=== PATIENT | male | born 1985 | race Two or more races ===

== ENCOUNTER 2020-05-09 12:32 | Emergency (ER) | payer OTHER ==
[~2020-05-09] VITALS: Ht 170.2 cm; Wt 86.0 kg
--- NOTE | 2020-05-09 12:55 | NUR ---
CHEST PRESSURE ON THE LEFT SIDE OF HIS CHEST FOR THE PAST 2 DAYS. PT WORKS CONSTRUCTION. NO HX, DENIES SOB VSS ON SENIOR UI UX DEVELOPER Ecg in triage DENIES ILLICITS
--- NOTE | 2020-05-09 12:56 | NUR ---
medical unit secretary used for assessment (argentine speaker)
[2020-05-09] MEDS ORDERED: ASPIRIN 81 MG TABLET CHEW ONE ×2 (13:21→13:23)
--- NOTE | 2020-05-09 13:24 | NUR ---
MEDICATED PER [facility] AT BEDSIDE
[2020-05-09] MEDS ORDERED: ASPIRIN 81 MG TABLET CHEW PO ONE (13:30)
[2020-05-09 13:41] LABS: BASOPHILS % (AUTO) 0 % (0-1); EOSINOPHILS % (AUTO) 1 % (1-7); LYMPHOCYTES % (AUTO) 31 % (22-44); MEAN CORPUSCULAR HEMOGLOBIN 30.3 pg (27.5-34.5); MEAN CORPUSCULAR HGB CONC 34.8 g/dL (33.2-36.2); MEAN PLATELET VOLUME 9.2 fL (7.4-10.4); MONOCYTES % (AUTO) 14 % (2-9); NEUTROPHILS % (AUTO) 54 % (42-75); PLATELET COUNT 213 x10^3/uL (130-400); RED BLOOD COUNT 5.46 x10^6/uL (4.38-5.82); RED CELL DISTRIBUTION WIDTH 12.8 % (9.4-14.8)
[2020-05-09 13:43] LABS: ALANINE AMINOTRANSFERASE 58 U/L (12-78); ALBUMIN 4.2 g/dL (3.4-5.0); ANION GAP 5 mmol/L (5-15); CALCIUM 8.9 mg/dL (8.5-10.1); CHLORIDE 104 mmol/L (98-107); CREATININE 1.02 mg/dL (0.7-1.3)
[2020-05-09 13:46] LABS: MD NO
[2020-05-09 13:47] LABS: ALKALINE PHOSPHATASE 70 U/L (45-117); BILIRUBIN,TOTAL 0.4 mg/dL (0.2-1.0); TOTAL PROTEIN 8.4 g/dL (6.4-8.2); TROPONIN I < 0.015 ng/mL (0.000-0.045)
[2020-05-09 13:57] VITALS: BP 111/80
== END 2020-05-09 14:29 | disposition home or self-care (01) ==
LOC: ED 13:43
DX: R07.89 Other chest pain (principal)
CPT/HCPCS: 36415; 71045; 80053; 84484; 85025; 93005; 99285